=== PATIENT | male | born 1990 | race Caucasian/White ===

== ENCOUNTER 2016-07-17 19:57 | Emergency (ER) | payer BC ==
[~2016-07-17] VITALS: Ht 190.5 cm; Wt 147.0 kg
[2016-07-17 20:44] VITALS: BP 136/84; PULSE 70; RESP 16; TEMP 98.9; O2SAT 98
--- NOTE | 2016-07-17 21:45 | PD ---
HPI Chief Complaint: Lump, Cyst, Hernia Time Seen by Provider: 21:41 Travel History International Travel<30 days: No Contact w/Intl Traveler<30days: No Traveled to known affect area: No History of Present Illness HPI Patient comes in for evaluation of painful bump that he first noticed yesterday. Patient states it is painful palpation. Describes pain as a soreness like in nature. Denies any trauma, fevers, drainage, weight loss, or noticing a bump there before. Patient states he awoke when he noticed a bump. Patient states that he only came because his significant other him come. Patient states that he took ibuprofen yesterday with minimal relief of symptoms. Denies any headaches, neck pain, chest pain, or shortness breath. PFSH Past Medical History Medical History: Denies Significant Hx Social History Alcohol Use: Yes (beer; ALMOST DAILY) Tobacco Use: Yes (e-cig) Substance Use: No Allergies-Medications (Allergen,Severity, Reaction): Coded Allergies: No Known Allergies (Unverified , 07/17/16) Reported Meds & Prescriptions Reported Meds & Active Scripts Active No Active Prescriptions or Reported Medications Review of Systems Except as stated in HPI: all other systems reviewed are Neg Physical Exam Narrative GENERAL: Well-developed, overly nourished, in no acute distress, and non-ill appearing. SKIN: Focused skin assessment warm and dry. Patient reports tenderness palpation right occipital lobe. There is no fluctuant mass, erythematous, crepitus, induration, or obvious deformity noted. HEAD: Atraumatic. Normocephalic. EYES: Pupils equal and round. EOMI. No scleral icterus. No injection or drainage. ENT: No nasal bleeding or discharge. Mucous membranes pink and moist. NECK: Trachea midline. Supple. No nuclear rigidity. No cervical lymphadenopathy. RESPIRATORY: No accessory muscle use. No respiratory distress. MUSCULOSKELETAL: No obvious deformities. No clubbing. No cyanosis. No edema. Full range of motion. NEUROLOGICAL: Awake and alert. No obvious cranial nerve deficits. Motor grossly within normal limits. Normal speech. PSYCHIATRIC: Appropriate mood and affect; insight and judgment normal. Data Data Last Documented VS Vital Signs Date Time Temp Pulse Resp B/P Pulse Ox O2 Delivery O2 Flow Rate FiO2 07/17/16 20:44 98.9 70 16 136/84 98 MDM Medical Decision Making Medical Screen Exam Complete: Yes Emergency Medical Condition: No Differential Diagnosis Abscess, sebaceous cyst, lymphadenopathy, other Narrative Course Patient in no obvious distress upon re-evaluation. Any questions/concerns in reference to patient diagnosis/condition discussed and clarified prior to patient's discharge. Reinforced sheer importance of close follow up with patient 's primary physician or primary care clinic. Instructed patient to return to ED immediately, if symptoms return/worsen. Pt showed understanding of above instructions. Further instructions and recommendations were detailed in discharge paperwork. Pt ambulated without difficulty out of ED at discharge. Diagnosis Primary Impression: Pain Patient Instructions: General Instructions Additional Instructions: Follow-up with your primary care physician this week for reevaluation. Use over -the-counter Tylenol and/or ibuprofen as needed for pain. Follow instructions on the packaging. Return to the emergency department if symptoms get worse. Scripts No Active Prescriptions or Reported Meds Disposition: 01 DISCHARGE HOME Condition: Stable Flavio Brewer Jul 17, 2016 21:45
== END 2016-07-17 22:06 | disposition home or self-care (01) ==
LOC: PHED 19:57 → PHEFT 22:06
DX: G50.1 Atypical facial pain (principal)
CPT/HCPCS: 99282